=== PATIENT | female | born 1950 | race Caucasian/White ===

== ENCOUNTER 2024-01-26 10:41 | Emergency (ER) | payer MEDICARE, SELFPAY ==
[2024-01-26 10:52] VITALS: BP 142/83; PULSE 79; RESP 20; TEMP 36.6; O2SAT 95
[2024-01-26 11:19] VITALS: PULSE 78; RESP 18; O2SAT 96; BMI 36.6
[2024-01-26 11:47] VITALS: BP 140/76; PULSE 61; RESP 19; TEMP 36.4; O2SAT 99
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
--- NOTE | 2024-01-26 11:51 | XR_ITS ---
Examination: CT brain head without contrast. 2-D sagittal coronal reconstructions Date and time of exam:January 26, 2024 1252 hrs. Indications: Patient fell today with injury to the head, head pain CTDI: vol (mGy):40.9 DLP: (mGycm):960 Technique: Multiple CT axial sections of the brain have been obtained, 5 mm slice thickness. Contrast has not been administered. 2-D sagittal, coronal reconstructions have been obtained Low dose protocols were performed. One or more of the following dose reduction techniques were used; automated exposure control, adjustment of the mA and/or KV according to patient size, use of iterative reconstruction technique. Findings: No significant ventricular enlargement. 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 No mass effect or midline shift Basal cisterns are not remarkable. Fourth ventricle is midline. Cranial vault intact. Impression: Negative for acute hemorrhage, mass effect or midline shift
--- NOTE | 2024-01-26 11:51 | XR_ITS ---
Examination: CT cervical spine without contrast 2-D sagittal reconstructions 2-D coronal reconstructions 3-D reconstructions. Exam date and time:January 26, 2024 1252 hrs. Indications: Patient fell today with injury to the neck, neck pain CTDI:vol (mGy) 7.97 DLP: (mGycm) 170 Technique: Multiple 2 mm axial sections of the cervical spine have been obtained. The coronal and sagittal reconstructions have been obtained. 3-D reconstructions have been obtained. Low dose protocols were performed. One or more of the following dose reduction techniques were used; automated exposure control, adjustment of the mA and/or KV according to patient size, use of iterative reconstruction technique. Findings: Axial sections demonstrate intact base of the skull. Grade 1 anterolisthesis C4 on C5 C1 exhibit satisfactory relationship to the odontoid. No acute cervical vertebral body fracture seen. Alignment posterior spinous processes satisfactory. Impression: No acute cervical fracture.
--- NOTE | 2024-01-26 13:40 | PC.CC ---
CARBURETOR REBUILDER CC engaged to arrange transport for pt back to her residence. CARBURETOR REBUILDER CC met with pt at bedside pt provided updated residence of [address] Pt agreeable to [employer] transport. [employer] transport arranged for pt back to her residence.
== END 2024-01-26 13:37 | disposition home or self-care (01) ==
PROVIDERS: Emergency Provider Emergency Medicine; Referring Provider Emergency Medicine
DX: S09.90XA Unspecified injury of head, initial encounter (principal); S19.9XXA Unspecified injury of neck, initial encounter; W19.XXXA Unspecified fall, initial encounter
CPT/HCPCS: 70450; 72125; 99284

== ENCOUNTER 2024-02-12 17:00 | Emergency (ER) | payer MEDICARE, SELFPAY ==
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
[2024-02-12 17:16] VITALS: PULSE 90; RESP 20; O2SAT 98
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
[2024-02-12 17:39] VITALS: BP 149/89; PULSE 72; RESP 19; TEMP 36.4; O2SAT 95
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
[2024-02-12 19:19] LABS: Basophils # (Auto) 0.1 Thou/mm3 (0.0-0.2); Basophils % (Auto) 0 % (0-2.5); Eosinophils # (Auto) 0.1 Thou/mm3 (0.0-0.5); Eosinophils % (Auto) 1 % (0-10); Hematocrit 41.2 % (36.0-46.0); Hemoglobin 13.1 g/dL (12.0-16.0); Immature Granulocytes % (Auto) 1 % (0-0); Immature Granulocytes Auto 0.09 Thou/mm3 (0.00-0.00); Lymphocytes # (Auto) 2.3 Thou/mm3 (1.0-4.8); Lymphocytes % (Auto) 19 % (10-50); Mean Corpuscular HGB Conc 31.8 g/dl (31.0-37.0); Mean Corpuscular Hemoglobin 27.9 pg (25.0-35.0); Mean Corpuscular Volume 88 fL (80-100); Monocytes # (Auto) 0.7 Thou/mm3 (0.0-0.8); Monocytes % (Auto) 5 % (0-12); Neutrophils # (Auto) 9.3 Thou/mm3 (1.8-7.7); Neutrophils % (Auto) 74 % (37-80); Nucleated Red Blood Cell % 0 /100 WBC (0); Platelet Count 133 Thou/mm3 (140-440); RDW Standard Deviation 42.5 fL (36.4-46.3); Red Blood Count 4.69 Miln/mm3 (4.00-5.20); White Blood Count 12.6 Thou/mm3 (3.6-11.0)
--- NOTE | 2024-02-12 19:22 | PC.NURSE ---
attempted to do assessments patient refused at this moment
[2024-02-12 19:51] LABS: Alanine Aminotransferase 16 U/L (10-49); Albumin, Serum 4.5 gm/dL (3.4-4.8); Albumin/Globulin Ratio 1.7 (1.2-2.2); Alcohol, Blood Medical < 3.0 mg/dL (0-10.0); Alkaline Phosphatase 103 U/L (46-116); Anion Gap 12 (7-16); Aspartate Amino Transferase 26 U/L (0-34); BUN/Creatinine Ratio 11 Ratio (12-20); Bilirubin,Total 0.3 mg/dL (0.3-1.2); Blood Urea Nitrogen 16 mg/dL (9-23); Carbon Dioxide 20.5 mMol/L (20.0-31.0); Chloride 108 mMol/L (98-107); Creatinine (Component) 1.4 mg/dL (0.6-1.3); Globulin 2.7 gm/dL (2.3-3.5); Glucose 85 mg/dL (74-106); Osmolality,Calculated 279 (275-295); Potassium 4.7 mMol/L (3.4-5.1); Sodium 140 mMol/L (136-145); Total Protein 7.2 gm/dL (5.7-8.2); eGFR 40 See Note
[2024-02-12 22:21] LABS: Collection Type, Urine Clean Catch
[2024-02-12 22:31] VITALS: BP 114/69; PULSE 63; RESP 17; TEMP 36.6; O2SAT 96
[2024-02-12 22:32] LABS: Bilirubin,Urine Negative (Negative); Blood,Urine Negative (Negative); Clarity,Urine Clear (Clear/Hazy); Color,Urine Lt-Yellow (Lt Yel-Yel); Glucose, Urine Negative (Negative); Ketones,Urine Negative (Negative); Leukocyte Esterase,Urine Positive (Negative); Nitrite,Urine Negative (Negative); PH,Urine 6.5 (5.0-7.0); Protein,Urine 1+ (Neg - Trace); RBC,Urine 7 /hpf (0-3); Squamous Epithelial Cell,Urine < 1 /hpf (0-5); Urobilinogen,Urine Negative mg/dL (0.0-1.0); WBC,Urine 165 /hpf (0-5)
[2024-02-12 23:10] LABS: Amphetamine/Methamp Scrn,U Positive (Negative); Barbiturate Screen,Urine Negative (Negative); Benzodiazepines Screen,Urine Negative (Negative); Benzoylecgonine Screen, Ur Negative (Negative); Fentanyl Screen,Urine Negative (Negative); Opiate Screen,Urine Negative (Negative); THC Screen,Urine Negative (Negative)
--- NOTE | 2024-02-12 23:18 | PD.EDADDENDU ---
Emergency Room Addendum Addendum Narrative: 2300: Care assumed from Nacho Rivas NP. Past medical, surgical, social and family history reviewed. Vitals and home medications reviewed. Results and treatment plan discussed. I will assume the care of the patient at this time and will follow the patient, pending crisis evaluation in the morning. Please refer to the emergency department record for history and examination from initial visit. Patient was placed in observation for treatment and monitoring of psychiatric symptoms, at 2300 02/12/24. Symptoms consist of suicidal ideation and depression. Treatment plan includes psychiatric consult, reassessments, and possible placement into psychiatric facility. The patient had access and provided personal hygiene, shower, food, water, and daily medications. 0600: Care signed out to Dr. Robin (emergency physician). Past medical, surgical, social and family history reviewed. Vitals and home medications reviewed. Results and treatment plan discussed. They will assume the care of the patient at this time and will follow the patient, pending crisis evaluation. At this time, observation has ended.
--- NOTE | 2024-02-13 05:37 | PC.NURSE ---
attempted to complete assessment patient pretended to be asleep and did not answer any questions just snored louder the more i called her name
--- NOTE | 2024-02-13 06:06 | PC.NURSE ---
PT REFUSED V/S NURSE AWARE
--- NOTE | 2024-02-13 06:45 | EDNOTE_ITS ---
Emergency Room Addendum <Danya Garcia - Last Filed: 02/13/24 13:14> Addendum Narrative: 0600: Care assumed from Dr. Paiz, the previous shift emergency physician. Past medical, surgical, social and family history reviewed. Vitals and home medications reviewed. I will assume the care of the patient at this time, pending mental health evaluation. Please refer to the emergency department record for history and examination from initial visit.? EMS notes reviewed by me. Nursing notes reviewed by me. Vital signs reviewed by me. [place] medical records reviewed by me. 0645: Code lea called overhead 0700: Patient medically cleared for mental health evaluation. <Heydi Saleh - Last Filed: 02/13/24 21:34> Addendum Narrative: 0600: Care assumed from Dr. Paiz, the previous shift emergency physician. Past medical, surgical, social and family history reviewed. Vitals and home medications reviewed. I will assume the care of the patient at this time, pending mental health evaluation. Please refer to the emergency department record for history and examination from initial visit.? EMS notes reviewed by me. Nursing notes reviewed by me. Vital signs reviewed by me. [place] medical records reviewed by me. 0645: Code tate called overhead 0700: Patient medically cleared for mental health evaluation. 1513 Upon clinical consultation with Elyse RIZZO patient?s 5150-hold will be rescinded as patient does not meet criteria. 1540: Patient remains clinically stable throughout the emergency department visit. Re-assessment at the time of disposition demonstrates that the patient is in no acute distress. We reviewed all the results, analysis, and treatment plans. Patient is amenable to discharge. Strict return precautions were outlined. Patient was discharged in stable condition. Diagnoses: Behavioral problem, methamphetamine abuse.
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
--- NOTE | 2024-02-13 09:21 | PC.CC ---
Patient is a 55 year-old female who presents to the hospital for weakness. ASWLeandra made olcy-vn-hlfo contact with patient. ASW introduced self, role, and reason for visit. Patient appeared alert and oriented to self, location, and situation. Patient's daughter Catia Marinelli was at bedside patient provided consent to remain in the room and engage in assessment with ASW. Patient has been staying at [facility] since being discharged from the hospital two days ago. Patient's daughter is concern that patient presented as altered yesterday as that is typically not her baseline and her blood sugar was spiked. Patient and daughter are not sure if the medication that was prescribed to the patient is causing her to be altered/drowsy. The patient reports she does feel comfortable at the facility except;however, requested to be moved to a different room as she does not feel comfortable with her roommate. Patient's daughter disclosed she was going to meet with the staff at the facility and if she is unhappy with the outcome they want to consider moving the patient to a different facility. 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 She was able to work with PT at the facility yesterday and ambulate with assistance of a walker. The patient needs assistance in completing her ADLs. Patient uses Oxygen all the time 3L. ASW to remain available as the family will make vp digital marketing social media and crm aware if they would like to get her moved to a different facility upon their meeting.
--- NOTE | 2024-02-13 09:38 | PC.NURSE ---
Patient refused to speak with social work faculty member, patient continues to refuse VS, allowing patient to sleep for now, 1:[address] for patients safety.
--- NOTE | 2024-02-13 12:33 | PC.NURSE ---
Addendum entered by Sushila Styles RN 02/13/24 12:36: inadvertently charted under Glair, this note was made by me. Original Note: Went to bedside to attempt to speak with patient and take vital signs, patient swinging in the air at me stating no , encourage patient to speak with social work msw, however, patient states no, i am not going anywhere patient uncooperative, yelling out and refusing treatment, will notify provider.
--- NOTE | 2024-02-13 14:13 | PC.NURSE ---
Patient yelling out and cussing at staff, speaking with creative services specialist.
--- NOTE | 2024-02-13 14:31 | PC.NURSE ---
Patient continuing to act out, yelling and calling staff names. S/S and Dr. Robin are aware.
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
== END 2024-02-13 15:49 | disposition home or self-care (01) ==
PROVIDERS: Registered Nurse General Practice; Emergency Provider Emergency Medicine
DX: Z04.6 Encounter for general psychiatric examination, requested by authority (principal); F15.10 Other stimulant abuse, uncomplicated
CPT/HCPCS: 36415; 80053; 80307; 80320; 81001; 85025; 90839; 93005; 96127; 99284; G0480

== ENCOUNTER 2024-07-15 13:23 | Emergency (ER) | payer MEDICARE, SELFPAY ==
--- NOTE | 2024-07-15 13:54 | EKG_ITS ---
[facility] Test Date: 2024-07-15 Pat Name: DAMASO SEGURA Department: Room: - Gender: Female Poultry Vaccinator: : 1950 Requested By: Cedric Coelho (DARLNIE) Order Number: [id number] Reading MD: Cedric Coelho (HAND SPRAY OPERATOR) Measurements Intervals [place] Rate: 67 P: 18 DC: 130 QRS: 9 QRSD: 122 T: 3 QT: 403 QTc: 427 Interpretive Statements SINUS RHYTHM MODERATE INTRAVENTRICULAR CONDUCTION DELAY [110+ ms QRS DURATION] NONSPECIFIC ST & T-WAVE ABNORMALITY Compared to ECG 10/07/2021 09:59:22 Intraventricular conduction delay now present T-wave abnormality still present /store/S0/[id number].pdf
[2024-07-15 13:58] VITALS: BP 127/79; PULSE 78; RESP 20; TEMP 36.7; O2SAT 97
--- NOTE | 2024-07-15 14:04 | XR_ITS ---
Examination: AP chest single view Technique one AP upright portable chest single view Date and time: July 15, 2024 1427 hours INDICATIONS: Coughing shortness of breath beginning 2 weeks ago. FINDINGS: Mild pneumonia right base Normal heart size Prominent osteopenia IMPRESSION: Mild pneumonia right base
--- NOTE | 2024-07-15 14:04 | PD.EDRME ---
Rapid Medical Screening Exam RME Arrival date/time: 07/15/24 13:23 74-year-old female presents department today for complaint of cough, congestion, shortness of breath Chief Complaint: Shortness of Breath/Dyspnea Vital signs: Vital Signs Temperature 98.1 F 07/15/24 13:58 Pulse Rate 78 07/15/24 13:58 Respiratory Rate 20 07/15/24 13:58 Blood Pressure 127/79 07/15/24 13:58 Pulse Oximetry (%) 97 07/15/24 13:58 Oxygen Delivery Method Room Air 07/15/24 13:58
[2024-07-15 14:22] LABS: Basophils # (Auto) 0.1 Thou/mm3 (0.0-0.2); Basophils % (Auto) 1 % (0-2.5); Eosinophils # (Auto) 0.2 Thou/mm3 (0.0-0.5); Eosinophils % (Auto) 2 % (0-10); Hematocrit 37.4 % (36.0-46.0); Hemoglobin 11.9 g/dL (12.0-16.0); Immature Granulocytes % (Auto) 0 % (0-0); Immature Granulocytes Auto 0.04 Thou/mm3 (0.00-0.00); Lymphocytes # (Auto) 2.9 Thou/mm3 (1.0-4.8); Lymphocytes % (Auto) 29 % (10-50); Mean Corpuscular HGB Conc 31.8 g/dl (31.0-37.0); Mean Corpuscular Hemoglobin 28.4 pg (25.0-35.0); Mean Corpuscular Volume 89 fL (80-100); Monocytes # (Auto) 0.6 Thou/mm3 (0.0-0.8); Monocytes % (Auto) 6 % (0-12); Neutrophils # (Auto) 6.3 Thou/mm3 (1.8-7.7); Neutrophils % (Auto) 63 % (37-80); Nucleated Red Blood Cell % 0 /100 WBC (0); Platelet Count 170 Thou/mm3 (140-440); Red Blood Count 4.19 Miln/mm3 (4.00-5.20)
[2024-07-15 14:51] LABS: Alanine Aminotransferase 10 U/L (10-49); Albumin/Globulin Ratio 1.8 (1.2-2.2); Alkaline Phosphatase 91 U/L (46-116); Anion Gap 10 (7-16); Aspartate Amino Transferase 20 U/L (0-34); BUN/Creatinine Ratio 16 Ratio (12-20); Bilirubin,Total 0.4 mg/dL (0.3-1.2); Blood Urea Nitrogen 23 mg/dL (9-23); Carbon Dioxide 26.1 mMol/L (20.0-31.0); Chloride 111 mMol/L (98-107); Creatinine (Component) 1.4 mg/dL (0.6-1.3); Globulin 2.2 gm/dL (2.3-3.5); Glucose 85 mg/dL (74-106); Osmolality,Calculated 295 (275-295); Potassium 4.1 mMol/L (3.4-5.1); Sodium 147 mMol/L (136-145); Total Protein 6.2 gm/dL (5.7-8.2); Troponin I 0.029 ng/mL (0.0-0.045); eGFR 39 See Note
[2024-07-15 16:23] VITALS: BP 120/74; PULSE 62; RESP 18; TEMP 36.7; O2SAT 96
== END 2024-07-15 17:34 | disposition left against medical advice (07) ==
PROVIDERS: Nurse Practitioner Primary Care; Emergency Provider Emergency Medicine; PCP Family Medicine
DX: R06.2 Wheezing (principal); R05.9 Cough, unspecified; Z53.29 Procedure and treatment not carried out because of patient's decision for other reasons
CPT/HCPCS: 36415; 71046; 80053; 84484; 85025; 93005; 99281

== ENCOUNTER 2024-09-23 12:19 | Emergency (ER) | payer MEDICARE, MEDICAID, SELFPAY ==
--- NOTE | 2024-09-23 12:31 | XR_ITS ---
Examination: AP chest single view Technique one AP portable upright chest single view Date and time: 03/26/2024 1306 hours INDICATIONS: Chest pain beginning 2 days ago. FINDINGS: Normal heart size. Lungs are clear. Prominent osteopenia IMPRESSION: No active disease
--- NOTE | 2024-09-23 12:31 | EKG_ITS ---
[facility] Test Date: 2024-09-23 Pat Name: DAMASO SEGURA Department: Room: - Gender: Female Pipe Supervisor: : 1950 Requested By: Nacho Rogel Order Number: [id number] Reading MD: Nacho Rogel Measurements Intervals [place] Rate: 85 P: 23 OK: 128 QRS: 11 QRSD: 93 T: -8 QT: 364 QTc: 434 Interpretive Statements SINUS RHYTHM NONSPECIFIC ST & T-WAVE ABNORMALITY Compared to ECG 07/15/2024 14:00:29 Intraventricular conduction delay no longer present T-wave abnormality still present /store/S0/[id number].pdf
--- NOTE | 2024-09-23 12:32 | PD.EDADULT ---
ED General RME/HPI General Chief complaint: Chest Pain Stated complaint: CHEST PAIN Time Seen by Provider: 09/23/24 12:31 Arrival date/time: 09/23/24 12:19 CC: Chest pain HPI patient presents to the ER via EMS who reports patient is mildly tachycardic with soft blood pressure, patient is exceedingly poor historian complaining of center right site-specific chest pain. Patient states pain is somewhat worse with deep inhalation but not reproducible with palpation. Chest pain has somewhat diminished and route after being given nitro paste note: Patient states she is allergic to aspirin. Patient has baseline slurred speech secondary to a stroke in 2007. The patient takes no medications and is not seen her PCP in a long time . EMS report argument with her son prior to call for chest pain. Related Data Previous Rx's ?Medication ?Instructions ?Recorded amoxicillin 875 mg-potassium 1 tab PO BID #14 tabs 10/16/21 clavulanate 125 mg tablet Allergies Allergy/AdvReac Type Severity Reaction Status Date / Time acetaminophen Allergy Unknown ITCHINESS Verified 07/15/24 13:26 ALL OVER aspirin Allergy Unknown ITCHY, Verified 07/15/24 13:26 SICK TO STOMACHE codeine Allergy Unknown VOMITING Verified 07/15/24 13:26 Review of Systems Review of Systems Narrative Review of Systems: GEN: No fever, no chills, no weight loss EYES: No discharge, no visual changes, no pain HEENT: No ear pain, no congestion, no sore throat PULM: No shortness of breath, no cough, no congestion CV: + chest pain, no dyspnea on exertion, no palpitations GI: No nausea, no vomiting, no diarrhea, no pain, no constipation : No frequency, no urgency, no dysuria MUSC/SKEL: No joint pain, no back pain SKIN: No rash PSYCH: No hallucinations, no depression HEME/LYMPH: No easy bleeding or bruising tendencies NEURO: No weakness, no headache Past Medical History Past Medical History NEUROLOGIC: Negative Seizures CARDIAC: Positive Hypercholesterolemia; Negative Congestive Heart Failure RESPIRATORY: Negative Chronic Obstructive Pulmonary Disease (COPD) GENITOURINARY: Negative Renal Disease ENDOCRINE: Positive Hypothyroidism; Negative Diabetes Mellitus Type 1 or Diabetes Mellitus Type 2 PSYCHO/SOCIAL: Positive Schizophrenia, Bipolar Disorder and Depression OTHER HISTORY: Negative Blood Transfusions, Blood Transfusion Reaction or Anesthesia Reactions Family History FAMILY HISTORY: Negative Family Cardiac Disorders Social History SMOKING STATUS: Light (< 1 pack/day) SUBSTANCE USE: methamphetamine ED Exam Narrative Physical exam: [General: Mild discomfort but not in any acute distress Head normocephalic HEENT: Eyes pupils are PERRLA EOMs are intact mouth [place] dry membranes uvula is midline swallow symmetrical phonation is altered secondary to old stroke. All other substances of HEENT are within acceptable limits Neck is supple nontender, no JVD no edema Chest equal chest rise nontender to palpation Respiratory: Clear to auscultation no wheezes crackles or rubs CV: Rate rhythm is regular no murmurs rubs or clicks Abdomen is distended secondary to body habitus soft nontender no masses positive bowel sounds all 4 quadrants Back: No CVA tenderness no spinous process tenderness from cervical spine thoracic and lumbar spine Skin: Intact no petechiae rash induration ulceration or crepitus Extremities: Moving all extremity against resistance cap refill less than 2 seconds neurosensory intact Neuro: Awake alert oriented x3 Glascow coma 15 no focal deficits] Course Quality Measures none Orders Category Date Time Status EKG (ED ONLY) *Do not use* NOW Care 09/23/24 12:31 Completed EKG (ED Only) Stat Exams 09/23/24 12:31 Draft XR chest 1V Stat Exams 09/23/24 12:31 Completed B-Type Natriuretic Peptide Stat Lab 09/23/24 12:57 Completed CBC Stat Lab 09/23/24 12:57 Completed Comprehensive Metabolic Panel Stat Lab 09/23/24 12:57 Completed Drug Screen,Urine Stat Lab 09/23/24 14:44 Completed LDH (Lactate Dehydrogenase) Stat Lab 09/23/24 12:57 Completed Magnesium Stat Lab 09/23/24 12:57 Completed Partial Thromboplastin Time Stat Lab 09/23/24 12:57 Completed Prothrombin Time with INR Stat Lab 09/23/24 12:57 Completed Troponin I Stat Lab 09/23/24 12:57 Completed Troponin I Stat Lab 09/23/24 15:56 Completed Urinalysis Stat Lab 09/23/24 14:44 Completed Vital Signs Vital signs: Vital Signs Temperature 98.2 F 09/23/24 12:43 Pulse Rate 89 09/23/24 12:43 Respiratory Rate 18 09/23/24 12:43 Blood Pressure 95/77 09/23/24 12:43 Pulse Oximetry (%) 93 L 09/23/24 12:43 Oxygen Delivery Method Room Air 09/23/24 12:43 Discharge Plan Plan Patient Disposition: HOME (Self Care) Patient condition on transfer: Stable Prescriptions/Referrals Prescriptions/Med Rec: No Action amoxicillin-pot clavulanate 875-125 mg tablet 1 tab PO BID Qty: 14 0RF Referrals: No Primary/Family,Physician [Primary Care Provider] - In 1 week Problem List Clinical Impression: Chest pain Patient/Caregiver Discharge Instructions Education Materials: ED Chest Pain, Uncertain Cause Additional Instructions: Follow-up with your primary care provider. If there is a worsening of symptoms return the emergency room medially for further evaluation. Print Language: Yoruba Stand Alone Forms: Sun Award Info., Patient Portal Info Letter PA/ENGINEERING LAB TECHNICIAN Supervising Physician PA/ENGINEERING LAB TECHNICIAN Supervising Physician: Nacho Rivas ENP, MD Attestation MD Attestation The patient was seen by the midlevel practitioner. I, the co-signing physician, was present during the entire ER visit. While I did not physically examine the patient, I was available for consultation as needed. I agree with the plan and documentation. MDM Chronic Illness/Social Conditions Add or document further as needed: Methamphetamine abuse medication noncompliance CVA EKG EKG Interpretation narrative: EKG performed at 1236 shows a ventricular rate of 85 CA interval 128 QRS of 93 QTc [address] segment changes. When compared to an old EKG of October 2021 there are no significant changes. Lab Interpretation Lab(s) interpretation(s): CBC shows mild leukocytosis 11.8 hemoglobin of 11.7 hematocrit of 36.4 no thrombocytopenia Coags within acceptable limits CMP shows a chloride of 111 creatinine of 1.4 note: This is unchanged from prior visits no other significant electrolyte imbalances T. bili elevation or transaminitis. Troponin BMP within acceptable limits delta troponin is also negative. Imaging Provider imaging interpretation(s): Chest x-ray interpreted by me read by radiology as negative for any acute finding. Medication Administration(s) none Diagnosis Differential diagnosis: ACS VT pneumonia Dispositon Disposition: Discharge Home
[2024-09-23 12:33] VITALS: RESP 16; O2SAT 98
[2024-09-23 12:43] VITALS: BP 95/77; PULSE 89; RESP 18; TEMP 36.8; O2SAT 93
[2024-09-23 13:10] LABS: Basophils # (Auto) 0.1 Thou/mm3 (0.0-0.2); Basophils % (Auto) 1 % (0-2.5); Eosinophils # (Auto) 0.1 Thou/mm3 (0.0-0.5); Eosinophils % (Auto) 1 % (0-10); Hematocrit 36.4 % (36.0-46.0); Hemoglobin 11.7 g/dL (12.0-16.0); Immature Granulocytes Auto 0.13 Thou/mm3 (0.00-0.00); Lymphocytes # (Auto) 2.0 Thou/mm3 (1.0-4.8); Lymphocytes % (Auto) 17 % (10-50); Mean Corpuscular HGB Conc 32.1 g/dl (31.0-37.0); Mean Corpuscular Hemoglobin 28.4 pg (25.0-35.0); Mean Corpuscular Volume 88 fL (80-100); Monocytes # (Auto) 0.7 Thou/mm3 (0.0-0.8); Monocytes % (Auto) 6 % (0-12); Neutrophils # (Auto) 8.8 Thou/mm3 (1.8-7.7); Neutrophils % (Auto) 75 % (37-80); Nucleated Red Blood Cell # 0.00 Thou/mm3 (0.00-0.00); Nucleated Red Blood Cell % 0 /100 WBC (0); Platelet Count 173 Thou/mm3 (140-440); RDW Standard Deviation 44.4 fL (36.4-46.3); Red Blood Count 4.12 Miln/mm3 (4.00-5.20); White Blood Count 11.8 Thou/mm3 (3.6-11.0)
[2024-09-23 13:22] LABS: B-Type Natriuretic Peptide 78 pg/mL (0-100)
[2024-09-23 13:25] LABS: INR 1.0 (0.9-1.3); Partial Thromboplastin Time 24.5 Seconds (22.0-36.0); Prothrombin Time 10.8 Seconds (9.0-12.2)
[2024-09-23 13:31] VITALS: BMI 29.7
[2024-09-23 13:35] LABS: Alanine Aminotransferase 9 U/L (10-49); Albumin, Serum 3.8 gm/dL (3.4-4.8); Albumin/Globulin Ratio 1.7 (1.2-2.2); Alkaline Phosphatase 84 U/L (46-116); Anion Gap 6 (7-16); Aspartate Amino Transferase 20 U/L (0-34); BUN/Creatinine Ratio 16 Ratio (12-20); Bilirubin,Total 0.3 mg/dL (0.3-1.2); Blood Urea Nitrogen 23 mg/dL (9-23); Calcium 9.9 mg/dL (8.3-10.6); Calcium (Corrected) 10.1 mg/dL (8.5-10.1); Carbon Dioxide 27.3 mMol/L (20.0-31.0); Chloride 111 mMol/L (98-107); Creatinine (Component) 1.4 mg/dL (0.6-1.3); Estimated Creatinine Clearance 39.8 mL/min (>60); Globulin 2.2 gm/dL (2.3-3.5); Glucose 102 mg/dL (74-106); LDH (Lactate Dehydrogenase) 226 U/L (120-246); Magnesium 1.6 mg/dL (1.6-2.6); Osmolality,Calculated 290 (275-295); Potassium 4.6 mMol/L (3.4-5.1); Sodium 144 mMol/L (136-145); Total Protein 6.0 gm/dL (5.7-8.2); Troponin I < 0.020 ng/mL (0.0-0.045); eGFR 39 See Note
[2024-09-23 15:02] LABS: Collection Type, Urine Clean Catch
[2024-09-23 15:23] LABS: Bacteria,Urine Rare; Bilirubin,Urine Negative (Negative); Blood,Urine Negative (Negative); Clarity,Urine Clear (Clear/Hazy); Color,Urine Lt-Yellow (Lt Yel-Yel); Glucose, Urine Negative (Negative); Ketones,Urine Negative (Negative); Leukocyte Esterase,Urine Negative (Negative); Nitrite,Urine Negative (Negative); PH,Urine 6.5 (5.0-7.0); Protein,Urine Trace (Neg - Trace); RBC,Urine 1 /hpf (0-3); Specific Gravity,Urine 1.020 (1.001-1.035); Squamous Epithelial Cell,Urine 1 /hpf (0-5); Urobilinogen,Urine Negative mg/dL (0.0-1.0); WBC,Urine < 1 /hpf (0-5)
[2024-09-23 15:43] LABS: Amphetamine/Methamp Scrn,U Positive (Negative); Barbiturate Screen,Urine Negative (Negative); Benzodiazepines Screen,Urine Negative (Negative); Benzoylecgonine Screen, Ur Negative (Negative); Fentanyl Screen,Urine Negative (Negative); Opiate Screen,Urine Negative (Negative); THC Screen,Urine Negative (Negative)
[2024-09-23 16:27] LABS: Troponin I < 0.020 ng/mL (0.0-0.045)
[2024-09-23 17:31] VITALS: BP 120/81; PULSE 66; RESP 18; O2SAT 94
--- NOTE | 2024-09-23 17:32 | PC.NURSE ---
RN called patient sister Bettie for transportation, patient dressed and placed in lobby to wait.
== END 2024-09-23 17:32 | disposition home or self-care (01) ==
PROVIDERS: Registered Nurse General Practice; Emergency Provider Family Medicine
DX: R07.9 Chest pain, unspecified (principal)
CPT/HCPCS: 36415; 71045; 80053; 80307; 81001; 83615; 83735; 83880; 84484; 85025; 85610; 85730; 93005; 99283